=== PATIENT | female | born 1985 | race Caucasian/White ===

== ENCOUNTER 2022-05-12 11:00 | Emergency (ER) | payer OTHER ==
[2022-05-12 11:13] VITALS: BP 137/81
--- NOTE | 2022-05-12 11:47 | ED Physician Documentation ---
PD HPI UPPER EXT INJURY - Stated complaint Stated Complaint: CUT L THUMB - Chief complaint Chief Complaint: Laceration - History obtained from History obtained from: Patient PD PAST MEDICAL HISTORY - Allergies Allergies/Adverse Reactions: Allergies Allergy/AdvReac Type Severity Reaction Status Date / Time No Known Drug Allergies Allergy Verified 05/12/22 11:13 Results - Vitals Vitals: Vital Signs - 24 hr 05/12/22 11:10 Temperature 36.8 C Heart Rate 66 Respiratory 16 Rate Blood Pressure 137/81 H O2 Saturation 98 Oxygen O2 Source Room air
[2022-05-12] MEDS ORDERED: LIDOCAINE 1%-EPI 1:100000 10 ML MDV SUBQ STA (12:10)
[2022-05-12] MEDS ORDERED: LIDOCAINE MPF 2%-EPI 1:200000 20 ML VIAL ONE (12:14)
--- NOTE | 2022-05-12 12:31 | ED Physician Documentation ---
PD HPI UPPER EXT INJURY - Stated complaint Stated Complaint: CUT L THUMB - Chief complaint Chief Complaint: Laceration - History obtained from History obtained from: Patient - History of Present Illness Location: Right - Additonal information Additional information: This is a 36-year-old female who presents after cutting her left thumb with her pocket knife. She was trying to open a package and slipped and she stabbed herself at the base of the left thumb. She reports normal range of motion and sensation. She states she is in the and recently had a baby and believes she is up-to-date with her tetanus. Review of Systems Constitutional: reports: Reviewed and negative (All Other systems reviewed and are negative except as described in HPI) PD PAST MEDICAL HISTORY - Past Medical History Past Medical History: No - Allergies Allergies/Adverse Reactions: Allergies Allergy/AdvReac Type Severity Reaction Status Date / Time No Known Drug Allergies Allergy Verified 05/12/22 11:13 PD ED PE NORMAL - Vitals Vital signs reviewed: Yes - General General: Alert and oriented X 3, No acute distress, Well developed/nourished - Derm Derm: Normal color, Warm and dry, No rash (3 cm laceration base of left thumb into the webbing between the thumb and Index finger.), Other - Extremities Extremities: No deformity, No tenderness to palpate, Normal ROM s pain, Other (Normal sensation and range of motion of the left and left hand) - Neuro Neuro: Alert and oriented X 3 Eye Opening: Spontaneous Motor: Obeys Commands Verbal: Oriented GCS Score: 15 - Psych Psych: Normal mood, Normal affect Results - Vitals Vitals: Vital Signs - 24 hr 05/12/22 11:10 Temperature 36.8 C Heart Rate 66 Respiratory 16 Rate Blood Pressure 137/81 H O2 Saturation 98 Oxygen O2 Source Room air Procedures - Laceration (location) Finger left Length in cm: 3 Wound type: Linear, Clean Neurovascular status: Sensory intact, Motor intact, Vascular intact Anesthesia: Lidocaine 1% with epi Wound preparation: Hibiclens, Irrigated copiously NS Skin layer closure: Nylon, Interrupted, Size #-0 - enter number (4), Sutures - enter # (4) Other: Patient tolerated well PD Medical Decision Making - ED course Complexity details: d/w patient ED course: 36-year-old female presents with laceration to her left thumb. Discussed with patient and her that I would recommend suture repair but we could try and Steri-Strips if they desired. Patient was amenable to suture repair and informed verbal consent was obtained. The site was anesthetized locally and irrigated thoroughly with normal saline and Hibiclens. I then closed it with 4 number four-point 0 nylon sutures, simple interrupted, with excellent wound edge approximation. A dressing was applied and patient was discharged home with home wound care instructions as well as return precautions if any signs of infection. The sutures can be removed in 7 to 10 days. Departure - Departure Disposition: Home, Self Care Clinical Impression: Laceration Laceration of left thumb without complication Qualifiers: Encounter type: initial encounter Qualified Code(s): S61.012A - Laceration without foreign body of left thumb without damage to nail, initial encounter Condition: Good Instructions: ED Laceration Hand Comments: Please keep area clean but do not soak and otherwise keep dry. Sutures can be removed in 7-10 days at a walk-in clinic or return to the ER if any signs of infection. Discharge Date/Time: 05/12/22 12:35
== END 2022-05-12 12:35 | disposition home or self-care (01) ==
LOC: ED 11:00
DX: S61.012A Laceration without foreign body of left thumb without damage to nail, initial encounter (principal); W26.0XXA Contact with knife, initial encounter
CPT/HCPCS: 12002; 99281

== ENCOUNTER 2022-12-05 20:15 | Emergency (ER) | payer OTHER ==
[2022-12-05 20:53] LABS: RAPID STREP SCREEN Negative (Negative)
[2022-12-05] MEDS ORDERED: ONDANSETRON ODT 4 MG TABLET TL STA (21:08)
[2022-12-05] MEDS ORDERED: ACETAMINOPHEN 325 MG TABLET PO STA (21:08)
--- NOTE | 2022-12-05 21:09 | ED Physician Documentation ---
History of Present Illness - Stated complaint Stated Complaint: NAUSEA,RAMIREZ,FEVER - Chief complaint Chief Complaint: Fever - History obtained from History obtained from: Patient, Family (spouse) - Additonal information Additional information: 36yF Previously healthy presents with sore throat, nasal congestion, body aches, ear fullness, and headache since 11 AM. tmax 101. denies cp, soa, vomiting diarr hea, urinary sx. Review of Systems Constitutional: reports: Fever, Chills, Myalgias, Fatigue Ears: reports: Ear pain Nose: reports: Rhinorrhea / runny nose, Congestion Throat: reports: Sore throat Cardiac: denies: Chest pain / pressure Respiratory: denies: Dyspnea GI: denies: Abdominal Pain, Nausea, Vomiting, Diarrhea : denies: Dysuria, Frequency, Hematuria Skin: denies: Rash Musculoskeletal: denies: Neck pain PD PAST MEDICAL HISTORY - Present Medications Home Medications: Ambulatory Orders Medication Instructions Recorded Confirmed Ondansetron Odt [Zofran Odt] 4 mg TL Q6H PRN #10 tablet 12/05/22 Sertraline [Zoloft] 25 mg PO DAILY 12/05/22 12/05/22 - Allergies Allergies/Adverse Reactions: Allergies Allergy/AdvReac Type Severity Reaction Status Date / Time No Known Drug Allergies Allergy Verified 12/05/22 20:24 Results - Vitals Vitals: Vital Signs - 24 hr 12/05/22 20:19 Temperature 37.1 C Heart Rate 95 Respiratory 17 Rate Blood Pressure 129/75 O2 Saturation 98 Oxygen O2 Source Room air - Labs Labs: Laboratory Tests 12/05/22 20:26 Group A Strep Rapid Negative PD Medical Decision Making - ED course ED course: 36yF p/w viral URI sx X1 day. zofran provided with improvement in nausea. symptomatic care discussed. return precautions given. she can view her RVP results on patient health portal. Departure - Departure Disposition: 01 Home, Self Care Clinical Impression: Viral URI Condition: Stable Instructions: ED Viral Syndrome Prescriptions: Ondansetron Odt [Zofran Odt] 4 mg TL Q6H PRN #10 tablet PRN Reason: Nausea / Vomiting Comments: You were seen in the emergency department for viral URI symptoms. You can view the results of your virus testing on the patient health portal. Prescription for zofran was sent electronically to [facility] in [place]. Please follow-up with your primary care provider and return to the emergency department if you have any new or worsening symptoms or other concerns. Forms: PCP List, Activity restrictions
[2022-12-05 21:30] LABS: B. PARAPERTUSSIS- RESP PCR PAN NOT DETECTED; B. PERTUSSIS- RESP PCR PANEL NOT DETECTED; C. PNEUMONIAE- RESP PCR PANEL NOT DETECTED; CORONAVIRUS 229E-RESP PCR NOT DETECTED; CORONAVIRUS HKU1-RESP PCR NOT DETECTED; CORONAVIRUS NL63-RESP PCR NOT DETECTED; CORONAVIRUS OC43-RESP PCR NOT DETECTED; HUMAN METAPNEUMOVIRUS NOT DETECTED; INFLUENZA A- RESP PCR PANEL NOT DETECTED; INFLUENZA B - RESP PCR PANEL NOT DETECTED; M. PNEUMONIAE- RESP PCR PANEL NOT DETECTED; PARAINFLUENZA VIRUS 1 NOT DETECTED; PARAINFLUENZA VIRUS 2 NOT DETECTED; PARAINFLUENZA VIRUS 3 NOT DETECTED; PARAINFLUENZA VIRUS 4 NOT DETECTED; RHINOVIRUS/ENTEROVIRUS NOT DETECTED; RSV- RESP PCR PANEL NOT DETECTED; SARS-CoV-2 -RESP PCR PANEL NOT DETECTED
[2022-12-05 21:32] VITALS: BP 132/74; O2SAT 100
== END 2022-12-05 21:28 | disposition home or self-care (01) ==
LOC: ED 20:15
DX: J06.9 Acute upper respiratory infection, unspecified (principal); Z20.822 Contact with and (suspected) exposure to COVID-19
CPT/HCPCS: 87070; 87430; 87633; 99283; A9270; Q0162